=== PATIENT | female | born 1940 | race Caucasian/White ===

== ENCOUNTER 2018-08-10 12:54 | Emergency (ER) | payer OTHER ==
--- NOTE | 2018-08-10 14:35 | RAD REPORT ---
EXAM DESCRIPTION: RAD -Hand Left 3 View - 08/10/2018 2:25 pm CLINICAL HISTORY: Left hand pain status post injury FINDINGS: No fracture or dislocation is seen. The bones are osteoporotic. Erosive osteoarthritis involves DIP joints.
--- NOTE | 2018-08-10 14:49 | ER ---
Nurse's Notes [facility] Name: Brittany Rosado Age: 77 yrs Sex: Female : 1940 Arrival Date: 08/10/2018 Time: 12:59 Bed 18 Private MD: None, None Diagnosis: Contusion of left ring finger without damage to nail Presentation: 08/10 13:21 Presenting complaint: Patient states: pain, swelling and mild bruising to L fourth ss finger that began after a door to her vehicle hit it. Pt denies crushing injury. Transition of care: patient was not received from another setting of care. Onset of symptoms was August 09, 2018. Risk Assessment: Do you want to hurt yourself or someone else? Patient reports no desire to harm self or others. Initial Sepsis Screen: Does the patient meet any 2 criteria? No. Patient's initial sepsis screen is negative. Does the patient have a suspected source of infection? No. Patient's initial sepsis screen is negative. Care prior to arrival: None. 13:21 Method Of Arrival: Ambulatory ss 13:21 Acuity: SKIP 4 ss Triage Assessment: 13:41 General: Appears in no apparent distress. Injury Description: Crush injury sustained to tw2 left hand. Historical: - Allergies: 13:23 No Known Allergies; ss - Home Meds: 13:23 "just vitamins" [Active]; ss - PMHx: 13:23 None; ss - PSHx: 13:23 None; ss - Immunization history:: Adult Immunizations up to date. - Social history:: Smoking status: Patient/guardian denies using tobacco. - Ebola Screening: : Patient denies exposure to infectious person Patient denies travel to an Ebola-affected area in the 21 days before illness onset. - Family history:: not pertinent. - Hospitalizations: : No recent hospitalization is reported. Screenin:41 Abuse screen: Denies threats or abuse. Nutritional screening: No deficits noted. tw2 Tuberculosis screening: No symptoms or risk factors identified. Fall Risk None identified. Assessment: 13:40 General: Appears in no apparent distress. Behavior is calm, cooperative, appropriate tw2 for age. Pain: Complains of pain in left hand. Neuro: Level of Consciousness is awake, alert, obeys commands, Oriented to person, place, time, situation. Cardiovascular: Capillary refill < 3 seconds Patient's skin is warm and dry. Respiratory: Airway is patent Respiratory effort is even, unlabored, Respiratory pattern is regular, symmetrical. GI: No signs and/or symptoms were reported involving the gastrointestinal system. : No signs and/or symptoms were reported regarding the genitourinary system. EENT: No signs and/or symptoms were reported regarding the EENT system. Derm: No signs and/or symptoms reported regarding the dermatologic system. Musculoskeletal: Circulation, motion, and sensation intact. Range of motion: intact in all extremities. 15:19 Reassessment: Patient appears in no apparent distress at this time. No changes from tw2 previously documented assessment. Patient and/or family updated on plan of care and expected duration. Pain level reassessed. Patient is alert, oriented x 3, equal unlabored respirations, skin warm/dry/pink. 15:19 Reassessment: pt did not tolerate the finger splint with coban, tried adrian system with tw2 tongue depressor, pt didn't not tolerate that either, supplies sent home with pt incase she changes her mind. Vital Signs: 13:23 BP 162 / 69; Pulse 57; Resp 17; Temp 97.6(TE); Pulse Ox 99% on R/A; Weight 71.67 kg; ss Height 5 ft. 2 in. (157.48 cm); Pain 9/10; 13:23 Body Mass Index 28.90 (71.67 kg, 157.48 cm) ED Course: 12:59 Patient arrived in ED. sb2 12:59 None, None is Private Physician. sb2 13:22 Triage completed. ss 13:23 Arm band placed on right wrist. ss 13:23 Bed in low position. Call light in reach. Pulse ox on. NIBP on. tw2 13:25 Cristobal Boone MD is Attending Physician. rn 13:28 Lea Velasco, VINNIE is Primary Nurse. tw2 13:42 No provider procedures requiring assistance completed. Patient did not have IV access tw2 during this emergency room visit. 14:13 X-ray completed. Portable x-ray completed in exam room. Patient tolerated procedure jb2 well. 14:26 XRAY Hand LEFT 3 View In Process Unspecified. EDMS Administered Medications: No medications were administered Outcome: 14:48 Discharge ordered by . rn 15:19 Discharged to home ambulatory. tw2 15:19 Condition: stable 15:19 Discharge instructions given to patient, Instructed on discharge instructions, follow up and referral plans. Demonstrated understanding of instructions, follow-up care, splint care. 15:20 Patient left the ED. tw2 Signatures: Dispatcher [employer] Shahid Chao jb2 Cristobal Boone MD MD rn Smirch, Shelby, RN RN ss Wise, Tara, RN RN tw2 Mili Hagen 2
--- NOTE | 2018-08-10 14:49 | EDPHYS ---
Physician Documentation [facility] Name: Brittany Rosado Age: 77 yrs Sex: Female : 1940 Arrival Date: 08/10/2018 Time: 12:59 Bed 18 Private MD: None, None ED Physician Cristobal Boone HPI: 08/10 14:32 This 77 yrs old Female presents to ER via Ambulatory with complaints of rn Finger Injury. 14:32 Trauma demographics: Location of Injury: The injury occurred at a parking lot. rn Associated injuries: The patient sustained left hand. Onset: The symptoms/episode began/occurred yesterday. The patient has not experienced similar symptoms in the past. REports putting stuff in back seat of truck, wind pushed door and struck her hand, no crush injury, reports pain to left 4th digit. . Historical: - Allergies: 13:23 No Known Allergies; ss - Home Meds: 13:23 "just vitamins" [Active]; ss - PMHx: 13:23 None; ss - PSHx: 13:23 None; ss - Immunization history:: Adult Immunizations up to date. - Social history:: Smoking status: Patient/guardian denies using tobacco. - Ebola Screening: : Patient denies exposure to infectious person Patient denies travel to an Ebola-affected area in the 21 days before illness onset. - Family history:: not pertinent. - Hospitalizations: : No recent hospitalization is reported. ROS: 14:32 Constitutional: Negative for fever, chills, and weight loss, MS/Extremity: + left 4th rn digit injury and swelling Exam: 14:32 Constitutional: This is a well developed, well nourished patient who is awake, alert, rn and in no acute distress. MS/ Extremity: Pulses equal, no cyanosis. Neurovascular intact. + swollen and ecchymotic left 4th digit around PIP, mild decreased ROM, hurts more today. Vital Signs: 13:23 BP 162 / 69; Pulse 57; Resp 17; Temp 97.6(TE); Pulse Ox 99% on R/A; Weight 71.67 kg; ss Height 5 ft. 2 in. (157.48 cm); Pain 9/10; 13:23 Body Mass Index 28.90 (71.67 kg, 157.48 cm) ss MDM: 13:25 Patient medically screened. rn 14:47 Differential diagnosis: extremity fracture. Data reviewed: vital signs, nurses notes, rn radiologic studies, plain films, and as a result, I will discharge patient. Counseling: I had a detailed discussion with the patient and/or guardian regarding: the historical points, exam findings, and any diagnostic results supporting the discharge/admit diagnosis, radiology results, the need for outpatient follow up, to return to the emergency department if symptoms worsen or persist or if there are any questions or concerns that arise at home. Special discussion: I discussed with the patient/guardian in detail that at this point there is no indication for admission to the hospital. It is understood, however, that if the symptoms persist or worsen the patient needs to return immediately for re-evaluation. 08/10 13:28 Order name: XRAY Hand LEFT 3 View; Complete Time: 14:47 rn 08/10 15:05 Order name: Splint - Finger; Complete Time: 15:19 rn Administered Medications: No medications were administered Disposition: 08/10/18 14:48 Discharged to Home. Impression: Contusion of left ring finger without damage to nail. - Condition is Stable. - Discharge Instructions: Hand Contusion. - Medication Reconciliation Form, Thank You Letter, Antibiotic Education, Prescription Opioid Use form. - Follow up: Private Physician; When: As needed; Reason: Recheck today's complaints, Re-evaluation by your physician. - Problem is new. - Symptoms have improved. Signatures: Dispatcher [employer] EDMS Cristobal Boone MD MD rn Smirch, Shelby, RN RN ss Wise, Tara, RN RN tw2 Corrections: (The following items were deleted from the chart) 15:20 14:48 08/10/2018 14:48 Discharged to Home. Impression: Contusion of left ring finger tw2 without damage to nail. Condition is Stable. Forms are Medication Reconciliation Form, Thank You Letter, Antibiotic Education, Prescription Opioid Use. Follow up: Private Physician; When: As needed; Reason: Recheck today's complaints, Re-evaluation by your physician. Problem is new. Symptoms have improved. rn
== END 2018-08-10 15:20 | disposition home or self-care (01) ==
LOC: ER 12:54
DX: S60.042A Contusion of left ring finger without damage to nail, initial encounter (principal); W20.8XXA Other cause of strike by thrown, projected or falling object, initial encounter; Y92.481 Parking lot as the place of occurrence of the external cause; M15.4 Erosive (osteo)arthritis; M81.0 Age-related osteoporosis without current pathological fracture
CPT/HCPCS: 99283